=== PATIENT | female | born 1990 | race Caucasian/White ===

== ENCOUNTER 2018-02-17 17:54 | Emergency (ER) | payer OTHER ==
[~2018-02-17] VITALS: Ht 157.5 cm; Wt 63.5 kg
[~2018-02-17 17:54] MED LIST: ZANTAC300 MG PO; ZOFRAN4 MG PO
== END 2018-02-17 22:26 | disposition home or self-care (01) ==
LOC: ER 17:54
DX: S67.197A Crushing injury of left little finger, initial encounter (principal); W23.0XXA Caught, crushed, jammed, or pinched between moving objects, initial encounter; Y93.89 Activity, other specified; Y92.89 Other specified places as the place of occurrence of the external cause; Y99.8 Other external cause status

== ENCOUNTER 2021-04-28 16:39 | Emergency (ER) | payer OTHER ==
[~2021-04-28] VITALS: Ht 157.5 cm; Wt 68.0 kg
== END 2021-04-28 19:04 | disposition home or self-care (01) ==
LOC: ER 16:39
DX: S93.401A Sprain of unspecified ligament of right ankle, initial encounter (principal); X50.0XXA Overexertion from strenuous movement or load, initial encounter; Y93.02 Activity, running; Y92.89 Other specified places as the place of occurrence of the external cause; Y99.8 Other external cause status

== ENCOUNTER 2022-08-26 13:07 | Emergency (ER) | payer OTHER ==
[~2022-08-26] VITALS: Ht 157.5 cm; Wt 68.0 kg
== END 2022-08-26 18:56 | disposition home or self-care (01) ==
LOC: ER 13:07
DX: R10.2 Pelvic and perineal pain (principal); N92.6 Irregular menstruation, unspecified

== ENCOUNTER 2022-12-06 10:49 | Outpatient (CLI) | payer OTHER | END 2022-12-06 10:58 | disposition home or self-care (01) | LOC: SONOGRAMA 10:49 | PROVIDERS: ATTEND Obstetrics & Gynecology | DX: N93.9 Abnormal uterine and vaginal bleeding, unspecified (principal) ==